=== PATIENT | male | born 1990 | race Two or more races ===

== ENCOUNTER 2021-04-23 16:39 | Inpatient (IN) | payer MEDICAID ==
[~2021-04-23] VITALS: Ht 172.7 cm; Wt 68.5 kg
[2021-04-23] MEDS ORDERED: DIPHENHYDRAMINE 50MG/ML VIAL IV ONE (17:30)
[2021-04-23] MEDS ORDERED: ONDANSETRON HCL 4MG/2ML INJ IV ONE (17:30)
[2021-04-23] MEDS ORDERED: METOCLOPRAMIDE HCL 10MG/2ML VIAL IV ONE (17:30)
[2021-04-23] MEDS ORDERED: MORPHINE SULFATE 4 MG/ML CPJ (NOT FOR IM USE) IV ONE (17:30)
[2021-04-23] MEDS ORDERED: SODIUM CHLORIDE 0.9% 1,000 ML IV ONE (17:30)
[2021-04-23 18:33] LABS: BASOPHILS % 0.5 % (0.0-2.0); EOSINOPHILS % 0.4 % (0.0-5.0); HEMATOCRIT. 44.3 % (42.0-52.0); LYMPHOCYTES % 13.2 % (20.0-50.0); MEAN CORPUSCULAR HEMOGLOBIN 30.1 pg (28.0-32.0); MEAN CORPUSCULAR VOLUME 88.7 fL (80.0-94.0); MEAN PLATELET VOLUME 8.4 fl (7.4-10.4); MONOCYTES % 6.1 % (2.0-8.0); NEUTROPHILS % 79.8 % (40.0-76.0); PLATELET 299 x1000/uL (130-400); RED BLOOD CELL COUNT 4.99 mill/uL (4.7-6.1); RED CELL DISTRIBUTION WIDTH 12.6 % (11.6-14.6)
[2021-04-23 18:35] LABS: CHLORIDE 106 mEq/L (98-107)
[2021-04-23] MEDS ORDERED: HEPARIN 25,000 UNITS PREMIX 250 ML IV PRN (21:15)
[2021-04-23] MEDS ORDERED: HEPARIN 5000 UNITS/ML VIAL IV SCH (21:15)
[2021-04-23] MEDS ORDERED: HEPARIN 5000 UNITS/ML VIAL IV PRN ×4 (21:15→22:15)
[2021-04-23 22:02] LABS: INR 1.1; PARTIAL THROMBOPLASTIN TIME 31.3 sec (23.4-31.0)
[2021-04-23] MEDS ORDERED: HEPARIN 5000 UNITS/ML VIAL IV NR (22:30)
[2021-04-23] MEDS ORDERED: IOHEXOL-350 100 ML BOTTLE ONE (23:37)
[2021-04-24] MEDS ORDERED: ONDANSETRON HCL 4MG/2ML INJ IV PRN (02:00)
[2021-04-24] MEDS ORDERED: HYDROCODONE/ACETAMINOPHEN 5/325MG TABLET PO PRN (02:00)
[2021-04-24] MEDS ORDERED: CLONIDINE 0.1MG TABLET PO PRN (02:00)
[2021-04-24] MEDS ORDERED: ACETAMINOPHEN 325MG TABLET PO PRN (02:00)
[2021-04-24] MEDS ORDERED: HYDROMORPHONE HCL/PF 2MG/ML CPJ IV PRN (03:00)
[2021-04-24] MEDS ORDERED: NALOXONE HCL 0.4 MG/ML 1ML VIAL IV PRN (03:15)
[2021-04-24] MEDS ORDERED: IOHEXOL-350 100 ML BOTTLE ONE (07:19)
[2021-04-24 12:15] VITALS: BP 109/59
[2021-04-24 13:00] VITALS: BP 109/59
[2021-04-24] MEDS ORDERED: HEPARIN BOLUS PRN aPTT <30 IV (13:15)
[2021-04-24] MEDS ORDERED: HEPARIN 25,000 UNITS PREMIX 250 ML IV SCH (13:15)
[2021-04-24] MEDS ORDERED: HEPARIN BOLUS PRN aPTT 30-44 IV (13:15)
[2021-04-24 16:00] VITALS: BP 118/59
[2021-04-24 16:28] LABS: INR 1.2; PARTIAL THROMBOPLASTIN TIME 33.8 sec (23.4-31.0); PROTHROMBIN TIME 12.6 sec (9.6-11.0)
[2021-04-24 20:00] VITALS: BP 126/60
[2021-04-24 23:54] VITALS: BP 133/60
[2021-04-25 03:47] VITALS: BP 132/53
[2021-04-25 05:53] LABS: BASOPHILS % 0.7 % (0.0-2.0); EOSINOPHILS % 2.3 % (0.0-5.0); HEMATOCRIT. 40.9 % (42.0-52.0); HEMOGLOBIN. 14.2 g/dL (14.0-18.0); MEAN CORPUSCULAR HEMOGLOBIN 30.6 pg (28.0-32.0); MEAN CORPUSCULAR VOLUME 87.7 fL (80.0-94.0); MEAN PLATELET VOLUME 8.3 fl (7.4-10.4); MONOCYTES % 8.2 % (2.0-8.0); NEUTROPHILS % 55.8 % (40.0-76.0); PLATELET 294 x1000/uL (130-400); RED BLOOD CELL COUNT 4.66 mill/uL (4.7-6.1); RED CELL DISTRIBUTION WIDTH 12.5 % (11.6-14.6)
[2021-04-25 07:34] LABS: CHLORIDE 107 mEq/L (98-107)
[2021-04-25 07:44] LABS: LDL CHOLESTEROL 81 mg/dL (5-100)
[2021-04-25 07:46] LABS: HDL CHOLESTEROL 70 mg/dL (40-59)
[2021-04-25 08:00] VITALS: BP 103/48
[2021-04-25] MEDS ORDERED: POTASSIUM CHLORIDE 20MEQ TABLET SR PO NR (10:00)
[2021-04-25 12:00] VITALS: BP 108/60
[2021-04-25] MEDS ORDERED: ASPIRIN 81MG EC TABLET PO SCH (12:15)
[2021-04-25 13:19] VITALS: BP 108/60
[2021-04-26] MEDS ORDERED: ASPIRIN 81MG EC TABLET PO SCH (09:00)
== END 2021-04-25 15:00 | disposition home or self-care (01) | DRG 347 ==
LOC: ER 16:39 → MICUSO 22:23 → 6WST 04-24 12:46
PROVIDERS: ADMIT Hospitalist; ATTEND Hospitalist
DX: S16.1XXA Strain of muscle, fascia and tendon at neck level, initial encounter (principal); I77.74 Dissection of vertebral artery; I67.848 Other cerebrovascular vasospasm and vasoconstriction; E86.0 Dehydration; X50.0XXA Overexertion from strenuous movement or load, initial encounter; Z91.51 Personal history of suicidal behavior; Q27.8 Other specified congenital malformations of peripheral vascular system; Y92.89 Other specified places as the place of occurrence of the external cause; Y99.8 Other external cause status; Y93.B2 Activity, push-ups, pull-ups, sit-ups
CPT/HCPCS: 36415; 70496; 70498; 80048; 80053; 80061; 85025; 93306; 99291; J1200; J1644; J2405; J2765; J7030; Q9967